=== PATIENT | male | born 1950 | race Caucasian/White ===

== ENCOUNTER 2020-10-05 08:59 | Day surgery (SDC) | payer MEDICARE ==
[~2020-10-05] VITALS: Ht 172.7 cm; Wt 74.4 kg
[2020-10-05] VITALS (27 sets, daily range): BP systolic 109–130; BP diastolic 57–87
[2020-10-05] MEDS ORDERED: HYDR-3973 PO (09:26)
[2020-10-05] MEDS ORDERED: FERR-116 PO (09:26)
[2020-10-05] MEDS ORDERED: albumin 25% 100mL bottle x 1 IV PRN (09:30)
[2020-10-05] MEDS ORDERED: normal saline 1000ml 1,000 ML IV PRN (09:30)
[2020-10-05 10:43] LABS: BASOPHILS # (AUTO) 0.1 X10'3 (0-0.2); BASOPHILS % (AUTO) 0.4 % (0-1); EOSINOPHILS # (AUTO) 0.4 X10'3 (0-0.9); EOSINOPHILS % (AUTO) 2.1 % (0-6); HEMATOCRIT 23.3 % (42.0-52.0); HEMOGLOBIN 7.2 g/dl (14.0-17.9); LYMPHOCYTES # (AUTO) 1.1 X10'3 (1.1-4.8); LYMPHOCYTES % (AUTO) 6.5 % (21-51); MEAN CORPUSCULAR HEMOGLOBIN 23.9 PG (27.0-31.0); MEAN CORPUSCULAR HGB CONC 30.8 g/dL (33.0-36.5); MEAN CORPUSCULAR VOLUME 77.4 FL (78-98); MEAN PLATELET VOLUME 9.3 FL (7.4-10.4); MONOCYTES # (AUTO) 1.3 X10'3 (0-0.9); MONOCYTES % (AUTO) 7.7 % (2-12); NEUTROPHILS # (AUTO) 14.5 X10'3 (1.8-7.7); NEUTROPHILS % (AUTO) 83.3 % (42-75); PLATELET COUNT 275 X10'3 (140-440); RED CELL DISTRIBUTION WIDTH 20.7 % (11.5-14.5); WHITE BLOOD COUNT 17.4 X10'3 (4.5-11.0)
[2020-10-05 10:46] LABS: ANION GAP 9 (8-16); BLOOD UREA NITROGEN 29 MG/DL (7-18); BUN/CREATININE RATIO 36.7 (5.4-32.0); CALCIUM 8.2 MG/DL (8.5-10.1); CHLORIDE 98 MMOL/L (99-107); CREATININE 0.79 MG/DL (0.60-1.10); GLUCOSE 134 MG/DL (70-104); POTASSIUM 3.4 MMOL/L (3.5-5.1); SODIUM 132 MMOL/L (135-145); eGFR > 90 ML/MIN
[2020-10-05 10:56] LABS: GLUCOSE,BODY FLUID 141 MG/DL; LDH,BODY FLUID 109 U/L; TOTAL PROTEIN,BODY FLUID 3.3 G/DL
[2020-10-05 11:22] LABS: ANISOCYTOSIS 3+; MICROCYTOSIS 1+; PLATELET ESTIMATE NORMAL; TOTAL CELLS COUNTED 100
[2020-10-05 11:23] LABS: HYPOCHROMASIA 1+; LARGE PLATELETS FEW; TARGET CELLS FEW
[2020-10-05 11:24] LABS: POLYCHROMASIA 1+; SCHISTOCYTES FEW
[2020-10-05 11:25] LABS: RED BLOOD COUNT 3.01 X10'6 (4.70-6.10)
[2020-10-05 11:36] LABS: BFAPPEAR CLOUDY; BFCOLOR YELLOW; BFVOLUME 50 ML
[2020-10-05 11:37] LABS: BF RBC COUNT 235 /CU MM; BF WBC COUNT 545 /CU MM (0-1000)
[2020-10-05] MEDS ORDERED: gelatin sponge, absorbable (Gelfoam 12-7MM) sponge TP ONE (12:23)
[2020-10-05] MEDS ORDERED: fentaNYL/PF 50MCG/1 ML 2ML syringe ONE ×2 (13:18→13:26)
[2020-10-05] MEDS ORDERED: LIDOcaine 1%/PF 5ML 10 MG/ML VIAL ONE (13:23)
[2020-10-05] MEDS ORDERED: sodium chloride 0.45% 1,000 ML IV SCH (14:15)
[2020-10-05 15:29] LABS: LYMPHOCYTES,BODY FLUID 55 %; NEUTROPHILS,BODY FLUID 10 %
[2020-10-05 15:41] LABS: BF MESOTHELIAL CELLS FEW
[2020-10-06 19:30] LABS: MONOCYTES,BODY FLUID 35 %
== END 2020-10-05 16:45 | disposition home or self-care (01) ==
LOC: SSTAY O 08:59
PROVIDERS: ATTEND Radiology Vascular & Interventional Radiology
DX: K76.89 Other specified diseases of liver (principal); R18.8 Other ascites; C16.9 Malignant neoplasm of stomach, unspecified; C78.7 Secondary malignant neoplasm of liver and intrahepatic bile duct; Z86.718 Personal history of other venous thrombosis and embolism; Z98.890 Other specified postprocedural states; Z88.0 Allergy status to penicillin; Z88.8 Allergy status to other drugs, medicaments and biological substances; Z79.899 Other long term (current) drug therapy
CPT/HCPCS: 47000; 49083; 76942; 80048; 82945; 83615; 83986; 84157; 85025; 85610; 87070; 89051; J3010; 85007